=== PATIENT | male | born 1950 | race Caucasian/White ===

== ENCOUNTER 2018-07-01 11:29 | Emergency (ER) | payer MEDICARE, OTHER, SELFPAY ==
[2018-07-01 11:30] VITALS: BP 141/65; PULSE 66; RESP 15; TEMP 36.4; O2SAT 97; BMI 28.2
--- NOTE | 2018-07-01 11:50 | EKG12_ITS ---
Test Reason : Blood Pressure : / mmHG Vent. Rate : 059 BPM Atrial Rate : 059 BPM P-R Int : 184 ms QRS Dur : 090 ms QT Int : 402 ms P-R-T Axes : 052 041 073 degrees QTc Int : 397 ms Sinus bradycardia Nonspecific T wave abnormality Abnormal ECG Confirmed by SAYRA BERMUDEZ, SAE ([id number]), editor at large MISSY PRATER ([id number]) on 07/03/2018 11:24:49 AM Referred By: MANPREET Confirmed By:SAE COLBERT MD
--- NOTE | 2018-07-01 11:50 | CT_ITS ---
STUDY: CT ABDOMEN AND PELVIS WITH CONTRAST REASON FOR EXAM: Male, 67 years old. Abdominal pain RADIATION DOSAGE (If Supplied By Facility): CTDIvol = ( 13.42 ) mGy, DLP = ( 901.39 ) mGycm TECHNIQUE: Transaxial images were obtained from the lower chest to the upper thighs without oral contrast. 100 ml of Isovue 300 contrast was administered. Sagittal and coronal images were reconstructed. Individualized dose optimization techniques were used for this CT. COMPARISON: None. FINDINGS: Lower chest: Lower lungs: Minimal dependent atelectasis in both lung bases. Pleura: No pleural effusion. Cardiac: Normal size heart. Liver: Possible fatty infiltration. Few small calcified granulomas. No discrete masses. Spleen: Numerous benign calcified granulomas. Gallbladder and biliary system: Prior cholecystectomy. Pancreas: Normal in appearance. Adrenal glands: Normal in appearance. Kidneys and collecting systems: Right: Scattered cysts with the largest measuring 5.5 cm in the hilum. Mild calyceal prominence likely due to mass effect from the large hilar cyst. Left: Normal in appearance. No dilatation of collecting system. Gastrointestinal: Stomach: Normal in appearance. Small bowel: Normal in appearance. Colon: Diverticula are scattered in the colon, most pronounced distally. There is mild wall thickening and surrounding stranding in the distal descending colon and mid sigmoid. Appendix: Surgically absent. Vessels: Arterial: Minimal scattered vascular calcifications. Venous: Unremarkable. Retroperitoneum/mesentery: Lymph nodes: Small retroperitoneal and mesenteric nodes. Fluid/free air: None. Pelvis: Bladder: Normal in appearance. Reproductive organs: Normal appearing prostate. No pelvic free fluid. Soft tissues: Unremarkable. Bones: Moderate degenerative changes. There is minimal retrolisthesis of L5 on S1 and L2 on L3. CT/Abdomen/Pelvis WITH Contrast IMPRESSION: There is mild diverticulitis of the distal descending colon and mid sigmoid colon. There is no bowel obstruction, ascites, free air or abscess formation. Electronically Signed: Valentina Garber MD at 14:54 EDT , Service support ,
--- NOTE | 2018-07-01 11:59 | ED.VISSUMM ---
- ER Visit Summary Date of Service: 07/01/18 Chief Complaint: Dizzy, abdominal pain History of Present Illness: The patient is a 67 M who presents with intermittent dizziness which he describes as a lightheaded sensation over the past couple of days. He denies vertigo. He does not feels if he is going to pass out. He denies chest pain or palpitations with the episodes. He states it is not necessarily worse he first stands. Is also complaining of intermittent sharp suprapubic pain that is similar to prior diverticulitis. Patient has had prior diverticulitis with abscess and required partial colectomy. Physical Examination: Vital signs are unremarkable. Patient sitting upright in bed no acute distress. Head neck examination is normal. Heart is regular rate and rhythm. Lung sounds are clear. Abdomen is soft with focal tenderness in the suprapubic area. There is no guarding or rebound. Active bowel sounds are noted. Test Results: EKG is sinus at 59 with no acute ischemia. CBC and chemistry studies normal. Urinalysis is 5-10 whites with 1+ bacteria. CT abdomen pelvis shows mild diverticulitis of the descending colon and the mid sigmoid colon. Emergency Department Course and Treatment: Patient is given IV fluids. Test results discussed with patient and son at bedside. He will be treated with Cipro and Flagyl, first doses given here. Treatment Plan: [] Disposition: Discharge Impression: Diverticulitis This note was generated with [employer] dictation software. It may contain incorrect words, spelling, and punctuation that were not noted in review of the chart prior to signing ED Disposition - Plan for ED Patient: Referrals: Care Physician,No Primary [Primary Care Provider] -
[2018-07-01] MEDS: 0.9% Normal Saline 1,000 ML 150 ML IV (12:07)
[2018-07-01 12:45] LABS: Absolute Lymphocyte Count 1.64 X10^3/ul (0.83-4.51); Absolute Neutrophil Count 4.5 X10^3/uL (2.0-7.7); Basophil# 0.02 X10^3/uL; Basophil% 0.3 % (0-1); Eosinophil# 0.15 X10^3/uL; Eosinophils% 2.1 % (0-5); Hemoglobin 14.5 g/dl (13.0-16.5); Lymphocyte # 1.64 X10^3/ul (4.0); Lymphocyte % 23.3 % (19-41); Mean Corp Hgb Conc 33.7 g/gl (32-36); Mean Corpuscular Hgb 30.4 pg (27.0-32.0); Mean Corpuscular Volume 90.1 fL (80-94); Mean Platelet Vol. 9.7 fl (6.2-12.0); Neutrophil # 4.51 X10^3/uL (2.7-7.7); Neutrophil % 64.2 % (47-70); Platelet Count 283 K/mm3 (150-450); RBC Distribution Width CV 12.9 % (11.6-14.6); RBC Distribution Width SD 42.2 fl (35.1-43.9); Red Blood Count 4.77 M/mm3 (4.6-6.2)
[2018-07-01 12:47] LABS: POSITIVE COUNT NO; POSITIVE DIFFERENTIAL NO; POSITIVE MORPHOLOGY NO
[2018-07-01 12:54] LABS: Anion Gap 3 (5-15); BUN 15 mg/dL (7-18); BUN/Creat Ratio 16.8 RATIO (10-20); Calcium,Total 8.6 mg/dL (8.5-10.1); Chloride 107 mmol/L (98-107); Creatinine, Serum 0.89 mg/dL (0.70-1.30); EST Glomerular Filtration Rate 90 mL/min (>60); Est Glom Filt Rate - Afr Amer 109 mL/min (>60); Estimated Creatinine Clearance 85.98 ml/min; Glucose 100 mg/dL (74-106); Sodium Level 140 mmol/L (136-145)
[2018-07-01 13:05] LABS: Color, Urine Yellow (Yellow); Glucose, Dipstick Normal (Normal); Ketone-Dipstick 5 mg/dl (Negative); Leukocyte Esterase-Dipstick 25 /ul (Negative); Nitrite-Dipstick Negative (Negative); Occult Blood-Urine Negative /ul (Negative); Protein-Dipstick 30 mg/dl (Negative); Urine Bilirubin Dipstick Negative (Negative); Urine Clarity Clear (Clear); Urine Urobilinogen Normal (Normal)
[2018-07-01 13:13] LABS: Bacteria 1+ /hpf (None Seen); Mucous, Urine 1+ /hpf (<or=2+); Red Blood Cells-Urine 0-5 SEEN /hpf (0-5); Squamous Epithelial Cells - UA 0-5 SEEN /hpf (0-5); White Blood Cells 5-10 SEEN /hpf (0-5)
[2018-07-01 13:39] VITALS: BP 135/76; PULSE 52; RESP 16; TEMP 37.1; O2SAT 96
--- NOTE | 2018-07-01 15:31 | ED.DEP ---
ED Disposition - Plan for ED Patient: Disposition: Home or Assisted Living Instructions: ED Diverticulitis Prescriptions: Ciprofloxacin [Cipro] 500 mg PO BID #14 tablet Metronidazole [Flagyl] 500 mg PO Q6H #40 tablet Referrals: Guilherme Thayer MD [NON-STAFF] -
[2018-07-01] MEDS: Ciprofloxacin 500 MG Tablet PO (15:40)
[2018-07-01] MEDS: metroNIDAZOLE 500 MG Tablet PO (15:40)
[2018-07-01 15:41] VITALS: BP 144/76; PULSE 67; PULSE 68; RESP 14; RESP 16; O2SAT 96; O2SAT 98
== END 2018-07-01 15:43 | disposition home or self-care (01) ==
PROVIDERS: Emergency Provider Emergency Medicine
DX: K57.92 Diverticulitis of intestine, part unspecified, without perforation or abscess without bleeding (principal); I10 Essential (primary) hypertension; I48.91 Unspecified atrial fibrillation; Z79.82 Long term (current) use of aspirin; Z79.899 Other long term (current) drug therapy; Z90.49 Acquired absence of other specified parts of digestive tract
CPT/HCPCS: 74177; 80048; 81001; 85025; 93005; 96361; 96374; 96375; 99285; J7030; Q9967

== ENCOUNTER 2020-03-30 20:04 | Emergency (ER) | payer MEDICARE, OTHER, SELFPAY ==
[2020-03-30 20:05] VITALS: BP 162/106; PULSE 92; RESP 16; TEMP 37.1; O2SAT 100; BMI 29.8
--- NOTE | 2020-03-30 20:15 | EKG12_ITS ---
Test Reason : PALPITATIONS Blood Pressure : / mmHG Vent. Rate : 082 BPM Atrial Rate : 082 BPM P-R Int : 172 ms QRS Dur : 082 ms QT Int : 376 ms P-R-T Axes : 054 032 072 degrees QTc Int : 439 ms Normal sinus rhythm Septal infarct , age undetermined Abnormal ECG Confirmed by GO BERMUDEZ, YUDITH ([id number]), mapping editor MISSY PRATER ([id number]) on 04/02/2020 11:09:09 AM Referred By: APPLE Confirmed By:YUDITH STILES MD
--- NOTE | 2020-03-30 20:16 | ED.VIS.GEN ---
History of Present Illness Chief Complaint: Palpitations Narrative: This patient is a 69-year-old male who presents with chief complaint of atrial fibrillation. He has a history of atrial fibrillation, he is on flecainide and Eliquis. About 40 minutes ago he felt himself go into A. fib for a period of about 5 minutes. There was no associated chest pain or shortness of breath no lightheadedness or dizziness. He states he can just tell when he is in it. Currently he has no complaints. He denies any recent illness. Past Medical History - Allergies and Home Meds Allergies/Adverse Reactions: Allergies Penicillins [PCN] Allergy (Verified 03/30/20 20:06) Unknown Primary Care Physician: Care Physician,No Primary [NON-STAFF] - Past Medical History: - - Hypertension, hyperlipidemia, atrial fibrillation Smoking Status: Former smoker Review of Systems All systems negative except as indicated General: Denies: Fever Eyes: Denies: Visual changes - bilaterally ENT: Denies: Bilateral ear pain Cardiovascular: Reports: Palpitations. Denies: Chest pain Respiratory: Denies: Dyspnea Gastrointestinal: Denies: Vomiting, Diarrhea Musculoskeletal: Denies: Myalgias, Arthralgias Skin: Denies: Rash Neurological: Denies: Headache Physical Exam Vital Signs/Narrative: Vital Signs Temp Pulse Resp BP Pulse Ox 03/30/20 20:05 98.8 F 92 16 162/106 H 100 Inital Vital Signs reviewed: Yes General: Well nourished, Well developed Head: Normocephalic Eyes: EOMI ENT: Moist mucous membranes Neck: Supple Cardiovascular: Regular rate, Regular rhythm Respiratory: No distress, CTA bilaterally Abdomen: Soft, Nontender Extremities: Nontender Skin: Normal color Neurological: Alert Psychological: Normal affect Diagnostic/Tx/Re-eval Impressions Chest X-Ray 03/30/20 20:27 IMPRESSION: No acute pulmonary process Electronically Signed: César Correa MD at 20:44 EST , Service support , 03/30/20 20:27 Chest 1 View (Portable) [RAD] Stat Laboratory Results 03/30/20 03/30/20 20:15 20:15 WBC 9.4 RBC 4.70 Hgb 14.6 Hct 43.0 MCV 91.5 MCH 31.1 MCHC 34.0 RDW Std Deviation 40.4 RDW Coeff of [place] 12.2 Plt Count 304 MPV 9.3 Immature Gran % (Auto) 0.400 Neut % (Auto) 78.6 H Lymph % (Auto) 13.1 L [place] % (Auto) 7.1 Eos % (Auto) 0.5 Baso % (Auto) 0.3 Absolute Neuts (auto) 7.4 Absolute Lymphs (auto) 1.23 Nucleated RBC % 0 Sodium 139 Potassium 3.8 Chloride 106 Carbon Dioxide 28.0 Anion Gap 5 BUN 14 Creatinine 0.85 Estim Creat Clear Calc 87.49 Est GFR (MDRD) Af Amer 115 Est GFR (MDRD) Non-Af 95 BUN/Creatinine Ratio 16.5 Glucose 94 Calcium 8.9 Troponin I 0.040 - Medical Decision Making KG shows normal sinus rhythm at a rate of 82, no acute ischemic changes. Serum laboratory studies and chest x-ray are unremarkable. The patient may have had a brief episode of atrial fibrillation but he is already on flecainide and anticoagulated. There is no indication for hospitalization. He is scheduled to follow-up with cardiology in 8 days. He was advised to contact them tomorrow to see if they will see him any sooner but I believe this is fine. He does understand return for new or worsening symptoms he was advised on signs and symptoms to monitor for and the patient was discharged. ED Disposition - Plan for ED Patient: Disposition: Home or Assisted Living Diagnosis: Atrial fibrillation Instructions: ED AFIB Referrals: Care Physician,No Primary [NON-STAFF] -
[2020-03-30 20:27] LABS: Absolute Lymphocyte Count 1.23 X10^3/uL (0.83-4.51); Absolute Neutrophil Count 7.4 X10^3/uL (2.0-7.7); Basophil# 0.03 X10^3/uL; Basophil% 0.3 % (0-1); Eosinophil# 0.05 X10^3/uL; Eosinophils% 0.5 % (0-5); Hemoglobin 14.6 g/dL (13.0-16.5); Lymphocyte # 1.23 X10^3/ul (4.0); Lymphocyte % 13.1 % (19-41); Mean Corpuscular Hgb 31.1 pg (27.0-32.0); Mean Corpuscular Volume 91.5 fL (80-94); Mean Platelet Vol. 9.3 fl (6.2-12.0); Monocyte# 0.67 X10^3/uL; Monocyte% 7.1 % (0-10); NRBC Flagged by Analyzer 0 % (0-5); Neutrophil # 7.38 X10^3/uL (2.7-7.7); Neutrophil % 78.6 % (47-70); Platelet Count 304 K/mm3 (150-450); RBC Distribution Width CV 12.2 % (11.6-14.6); RBC Distribution Width SD 40.4 fl (35.1-43.9); White Blood Count 9.4 K/mm3 (4.4-11.0)
--- NOTE | 2020-03-30 20:27 | RAD_ITS ---
STUDY: X-RAY CHEST REASON FOR EXAM: Male, 69 years old. Chest pain, tachycardia TECHNIQUE: 2 AP portable views COMPARISON: None. FINDINGS: EKG leads overlie the chest The lungs are clear and expanded. There is no demonstrated pleural abnormality. Normal size heart. Normal mediastinum and jl. Normal visualized pulmonary arteries. Normal visualized aortic arch and descending thoracic aorta. There are diffuse degenerative changes of the visualized thoracic spine. Normal visualized ribs, clavicles, and shoulders. There is no demonstrated abnormality of the visualized soft tissue structures of the upper abdomen. RAD/Chest 1 View (Portable) IMPRESSION: No acute pulmonary process Electronically Signed: César Correa MD at 20:44 EST , Service support ,
[2020-03-30 20:38] VITALS: BP 156/82; PULSE 79; RESP 19; O2SAT 98
[2020-03-30 20:44] LABS: Anion Gap 5 (5-15); BUN 14 mg/dL (7-18); BUN/Creat Ratio 16.5 RATIO (10-20); Calcium,Total 8.9 mg/dL (8.5-10.1); Chloride 106 mmol/L (98-107); Creatinine, Serum 0.85 mg/dL (0.70-1.30); EST Glomerular Filtration Rate 95 mL/min (>60); Est Glom Filt Rate - Afr Amer 115 mL/min (>60); Estimated Creatinine Clearance 87.49 ml/min; Glucose 94 mg/dL (74-106); Potassium 3.8 mmol/L (3.5-5.1); Sodium Level 139 mmol/L (136-145)
[2020-03-30 21:04] VITALS: BP 157/81; PULSE 79; RESP 15; O2SAT 97
== END 2020-03-30 21:08 | disposition home or self-care (01) ==
PROVIDERS: Emergency Provider Emergency Medicine; PCP Internal Medicine
DX: I48.91 Unspecified atrial fibrillation (principal); I10 Essential (primary) hypertension; E78.5 Hyperlipidemia, unspecified; Z79.01 Long term (current) use of anticoagulants; Z79.899 Other long term (current) drug therapy; Z87.891 Personal history of nicotine dependence
CPT/HCPCS: 71045; 80048; 84484; 85025; 93005; 99284